=== PATIENT | male | born 2000 | race Caucasian/White ===

== ENCOUNTER 2022-01-28 15:38 | Emergency (ER) | payer OTHER ==
[~2022-01-28] VITALS: Ht 172.7 cm; Wt 77.1 kg
[2022-01-28] MEDS ORDERED: CLEOCIN HCL300 MG PO (18:28)
== END 2022-01-28 18:53 | disposition home or self-care (01) ==
LOC: ER 15:38
DX: L02.31 Cutaneous abscess of buttock (principal)